=== PATIENT | male | born 1980 | race Asian ===

== ENCOUNTER 2023-06-12 08:23 | Day surgery (SDC) | payer OTHER ==
[~2023-06-12] VITALS: Ht 175.3 cm; Wt 81.6 kg
[2023-06-12] MEDS ORDERED: fentaNYL citrate 0.05 MG/ML VIAL ONE (10:13)
[2023-06-12] MEDS ORDERED: PROPOFOL 200 MG/20 ML VIAL IV ONE (10:14)
[2023-06-12] MEDS ORDERED: BUPIVACAINE MPF 0.25% 10 ML VIAL INJ ONE ×2 (10:30)
[2023-06-12] MEDS ORDERED: LIDOCAINE MPF 1% 0 ML ONE (10:30)
[2023-06-12] MEDS ORDERED: HYDROGEN PEROXIDE 3% 240 ML BTL TP ONE (10:31)
[2023-06-12] MEDS ORDERED: LIDOCAINE 1% 500 MG/50 ML VIAL ONE ×2 (10:32→11:08)
[2023-06-12] MEDS ORDERED: SEVOFLURANE 250 ML BTL INH ONE (10:35)
[2023-06-12] MEDS ORDERED: SUCCINYLCHOLINE CHLORIDE 200 MG/10 ML VIAL IVP ONE (10:39)
[2023-06-12] MEDS ORDERED: BUPIVACAINE-MPF 0.25% 30 ML VIAL INJ ONE (11:08)
[2023-06-12] MEDS ORDERED: DEXAMETHASONE 4 MG/ML VIAL ONE (11:11)
[2023-06-12] MEDS ORDERED: ONDANSETRON 4 MG/2 ML VIAL ONE (11:11)
[2023-06-12] MEDS ORDERED: MEPERIDINE 50 MG/ML SYR ONE (11:15)
[2023-06-12] MEDS ORDERED: MEPERIDINE 25 MG/ML SYR IVP PRN (11:20)
[2023-06-12] MEDS ORDERED: diphenhydrAMINE 50 MG/ML VIAL IVP PRN (11:20)
[2023-06-12] MEDS ORDERED: LACTATED RINGERS 1,000 ML IV SCH (11:20)
[2023-06-12] MEDS ORDERED: ONDANSETRON 4 MG/2 ML VIAL IVP PRN (11:20)
[2023-06-12] MEDS ORDERED: HYDROmorphone 1 MG/ML AMP IVP PRN (11:20)
== END 2023-06-12 13:35 | disposition home or self-care (01) ==
LOC: MOR 08:23 → MMU 08:24 → MOR 13:35
PROVIDERS: ATTEND Surgery
DX: K60.3 Anal fistula (principal); K60.4 Rectal fistula
CPT/HCPCS: 46020; 71045; J0330; J1100; J2001; J2175; J2405; J2704; J3010; J3490; J7120

== ENCOUNTER 2023-09-16 06:51 | Day surgery (SDC) | payer OTHER ==
[~2023-09-16] VITALS: Ht 175.3 cm; Wt 82.6 kg
[2023-09-16] MEDS ORDERED: metroNIDAZOLE 500 MG/NS PREMIX 100 ML IV ONE (08:57)
[2023-09-16] MEDS ORDERED: diphenhydrAMINE 50 MG/ML VIAL IVP PRN (09:40)
[2023-09-16] MEDS ORDERED: LACTATED RINGERS 1,000 ML IV SCH (09:40)
[2023-09-16] MEDS ORDERED: ONDANSETRON 4 MG/2 ML VIAL IVP PRN (09:40)
[2023-09-16] MEDS ORDERED: HYDROmorphone 1 MG/ML AMP IVP PRN (09:40)
[2023-09-16] MEDS: BUPIVACAINE-MPF 0.25% 30 ML VIAL INJ ONE (09:41)
[2023-09-16] MEDS: LIDOCAINE/EPI MPF 1%1:200000 30 ML VIAL INJ ONE (09:42)
== END 2023-09-16 11:15 | disposition home or self-care (01) ==
LOC: MDS 06:51 → MMU 07:13 → EDSTATUS 08:00 → MDS 11:15
PROVIDERS: ATTEND Surgery
DX: K61.0 Anal abscess (principal); Z79.899 Other long term (current) drug therapy
CPT/HCPCS: 46275; 71045; 93005; J2001; J3490; 88304; J7120

== ENCOUNTER 2023-09-17 09:44 | Emergency (ER) | payer OTHER ==
[~2023-09-17] VITALS: Ht 175.3 cm; Wt 81.6 kg
[2023-09-17 09:57] VITALS: BP 131/80; PULSE 75; RESP 20; TEMP 98; O2SAT 98
[2023-09-17 13:06] VITALS: BP 114/76; PULSE 56; RESP 17; TEMP 98; O2SAT 98
== END 2023-09-17 13:06 | disposition home or self-care (01) ==
LOC: MED 09:44
DX: Z48.01 Encounter for change or removal of surgical wound dressing (principal); Z98.890 Other specified postprocedural states
CPT/HCPCS: 99281